=== PATIENT | female | born 1950 | race Caucasian/White ===

== ENCOUNTER 2023-04-08 18:13 | Outpatient (REF) | payer MEDICARE, SELFPAY ==
--- NOTE | 2023-04-08 14:00 | SKI_PTH ---
PATIENT: Nicole Kimball LOC: [facility] U#:[id number] AGE/SX: 72/F ROOM: RE04/08/[address]: Fritz Delaney MD : 1950 BED: DIS: 04/08/2023 SPEC #: [id number] RECD: 04/08/23 18:21 STATUS: RON REQ #: [id number] COLLEEN: 04/08/23 14:[address]: Fritz Delaney DEPT: Surgical Specimen RECD BY: Briseida Daley ENTERED: 04/08/23 18:22 SP TYPE: KETAN BARCLAY DR: Sergio Mccullough Tissues: 1 - SKIN BIOPSY(SHAVE/PUNCH) Procedures: SKIN LEVEL 4 Comments: [id number]
== END 2023-04-08 18:14 | disposition home or self-care (01) ==
LOC: LBN 18:13
PROVIDERS: PCP Family Medicine; Visit Provider Otolaryngology
DX: L98.9 Disorder of the skin and subcutaneous tissue, unspecified (principal)
CPT/HCPCS: 87077; 87070; 87186; 88305

== ENCOUNTER 2023-06-05 09:36 | Outpatient (REF) | payer MEDICARE, SELFPAY ==
--- NOTE | 2023-06-05 07:30 | NASALBX_PTH ---
PATIENT: Nicole Kimball LOC: [facility] U#:[id number] AGE/SX: 72/F ROOM: RE06/05/[address]: Fritz Delaney MD : 1950 BED: DIS: 06/05/2023 SPEC #: [id number] RECD: 06/05/23 17:45 STATUS: RON REQ #: [id number] COLLEEN: 06/05/23 07:[address]: Fritz Delaney DEPT: Surgical Specimen RECD BY: Briseida Daley ENTERED: 06/05/23 17:49 SP TYPE: NASALBX OTHR DR: Sergio Mccullough Tissues: 1 - MUCOSA, NOS Procedures: SPECIAL STAIN 2 GROSS AND MICRO LEVEL 4 IMMUNOPEROXIDASE STAIN Single Probe In Situ Hybridization SPECIAL STAIN 1 Comments: [id number]
== END 2023-06-05 09:37 | disposition home or self-care (01) ==
LOC: LBN 09:36
PROVIDERS: PCP Family Medicine; Visit Provider Otolaryngology
DX: J31.0 Chronic rhinitis (principal); J01.80 Other acute sinusitis; J34.89 Other specified disorders of nose and nasal sinuses
CPT/HCPCS: 88305; 88368; 88312; 88313; 88361